=== PATIENT | male | born 1990 | race Two or more races ===

== ENCOUNTER 2019-04-17 02:46 | Emergency (ER) | payer OTHER ==
[~2019-04-17] VITALS: Ht 188 cm; Wt 128.4 kg
[2019-04-17 04:09] VITALS: BP 133/98
== END 2019-04-17 04:35 | disposition home or self-care (01) ==
LOC: ER 02:49
DX: S43.421A Sprain of right rotator cuff capsule, initial encounter (principal); X58.XXXA Exposure to other specified factors, initial encounter; Y93.89 Activity, other specified; Y99.8 Other external cause status; Y92.89 Other specified places as the place of occurrence of the external cause
CPT/HCPCS: 73030